=== PATIENT | female | born 1940 | race African-American/Black ===

== ENCOUNTER 2017-08-03 07:22 | Inpatient (IN) | payer MEDICARE, OTHER ==
[~2017-08-03] VITALS: Ht 151.8 cm; Wt 72.7 kg
[2017-08-03] MEDS ORDERED: LORA0.5T2 PO (07:53)
[2017-08-03] MEDS ORDERED: MORPHINE SULFATE 4 MG/ML CPJ (NOT FOR IM USE) IV STA (10:24)
[2017-08-03] MEDS ORDERED: NITROGLYCERIN OINT 1GM/INCH UDPKT TD STA (10:24)
[2017-08-03 10:44] LABS: BASOPHILS % 0.9 % (0.0-2.0); EOSINOPHILS % 1.2 % (0.0-5.0); HEMATOCRIT. 39.8 % (36.0-48.0); HEMOGLOBIN. 12.8 g/dL (12.0-16.0); LYMPHOCYTES % 13.1 % (20.0-50.0); MEAN CORPUSCULAR HEMOGLOBIN 26.8 pg (28.0-32.0); MEAN CORPUSCULAR VOLUME 83.6 fL (81.0-99.0); MONOCYTES % 7.5 % (2.0-8.0); NEUTROPHILS % 77.3 % (40.0-76.0); PLATELET 486 x1000/uL (130-400); RED BLOOD CELL COUNT 4.76 mill/uL (4.2-5.4); RED CELL DISTRIBUTION WIDTH 14.2 % (11.6-14.6)
[2017-08-03 11:04] LABS: CARBON DIOXIDE 27 mEq/L (21-32); CHLORIDE 106 mEq/L (98-107); TROPONIN I < 0.02 ng/mL (0.00-0.04)
[2017-08-03] MEDS ORDERED: ASPIRIN 325MG EC TABLET PO NR (11:27)
[2017-08-03 20:00] VITALS: BP 116/62
[2017-08-03] MEDS ORDERED: ASPI-1159 PO (21:04)
[2017-08-03] MEDS ORDERED: NEOM10DR11 EACH EAR (21:04)
[2017-08-03] MEDS ORDERED: MECL-109 PO (21:04)
[2017-08-03] MEDS ORDERED: ACETAMINOPHEN 650MG/20.3ML UDC PO PRN (21:15)
[2017-08-03] MEDS ORDERED: HYDROCODONE/ACETAMINOPHEN 5/325MG TABLET PO PRN (21:15)
[2017-08-03] MEDS: PANTOPRAZOLE 40MG DR TABLET PO SCH (22:12)
[2017-08-04] VITALS: BP 96/53
[2017-08-04 04:00] VITALS: BP 99/60
[2017-08-04 06:29] LABS: BASOPHILS % 0.6 % (0.0-2.0); EOSINOPHILS % 2.8 % (0.0-5.0); HEMATOCRIT. 38.5 % (36.0-48.0); HEMOGLOBIN. 12.3 g/dL (12.0-16.0); LYMPHOCYTES % 19.2 % (20.0-50.0); MEAN CORPUSCULAR HEMOGLOBIN 26.8 pg (28.0-32.0); MEAN CORPUSCULAR VOLUME 83.6 fL (81.0-99.0); MEAN PLATELET VOLUME 7.6 fl (7.4-10.4); MONOCYTES % 9.3 % (2.0-8.0); NEUTROPHILS % 68.1 % (40.0-76.0); PLATELET 447 x1000/uL (130-400)
[2017-08-04] MEDS: PANTOPRAZOLE 40MG DR TABLET PO SCH (06:53)
[2017-08-04 08:00] VITALS: BP 113/66
[2017-08-04 08:40] LABS: HDL CHOLESTEROL 68 mg/dL (40-59); LDL CHOLESTEROL 127 mg/dL (5-100); TROPONIN I < 0.02 ng/mL (0.00-0.04)
[2017-08-04] MEDS ORDERED: METOPROLOL TARTRATE 25MG TABLET PO SCH (09:00)
[2017-08-04] MEDS ORDERED: ENOXAPARIN 40MG/0.4ML SYR SUBCUT SCH (09:00)
[2017-08-04] MEDS ORDERED: ASPIRIN 81MG TABLET PO SCH (09:00)
[2017-08-04] MEDS ORDERED: INFLUENZA VIRUS VACCINE 0.5ML SYR IM ONE (10:00)
[2017-08-04] MEDS ORDERED: PNEUMOCOCCAL 23-VAL P-SAC VAC 0.5 ML IM ONE (11:00)
[2017-08-04 12:00] VITALS: BP 102/60
[2017-08-04 16:00] VITALS: BP 118/70
== END 2017-08-04 17:50 | disposition home or self-care (01) | DRG 392 ==
LOC: ER 08:07 → 5WST 11:45 → ENRESERV 17:04
PROVIDERS: ADMIT Internal Medicine; ATTEND Internal Medicine
DX: K21.9 Gastro-esophageal reflux disease without esophagitis (principal); E78.00 Pure hypercholesterolemia, unspecified; R07.89 Other chest pain; F41.9 Anxiety disorder, unspecified; I10 Essential (primary) hypertension; Z90.710 Acquired absence of both cervix and uterus; Z79.899 Other long term (current) drug therapy; Z79.82 Long term (current) use of aspirin; Z88.2 Allergy status to sulfonamides; R09.1 Pleurisy
CPT/HCPCS: 36415; 70450; 71045; 80053; 80061; 83690; 84443; 84484; 85025; 90686; 90732; 93005; 93306; 99285; J1650

== ENCOUNTER 2017-09-22 17:00 | Emergency (ER) | payer OTHER ==
[~2017-09-22] VITALS: Ht 172.7 cm; Wt 72.0 kg
[~2017-09-22 17:00] MED LIST: ASPI-1159 PO; LORA0.5T2 PO; MECL-109 PO; NEOM10DR11 EACH EAR
[2017-09-23 00:52] VITALS: BP 133/81
== END 2017-09-23 01:07 | disposition home or self-care (01) ==
LOC: ER 19:35
DX: M54.6 Pain in thoracic spine (principal); E78.00 Pure hypercholesterolemia, unspecified; Z88.2 Allergy status to sulfonamides; Z79.82 Long term (current) use of aspirin
CPT/HCPCS: 72070; 99284